=== PATIENT | male | born 1985 | race Caucasian/White ===

== ENCOUNTER 2022-01-15 14:24 | Outpatient (RCR) | payer MEDICAID, SELFPAY ==
[2022-01-31 11:29] LABS: MANUAL DIFF FLAG NO
[2022-01-31 11:38] LABS: Basophils Percent Auto 0.8 % (0-2); Eosinophils Percent Auto 0.2 % (0-4); Hematocrit 37.1 % (42.0-52.0); Hemoglobin 12.7 g/dl (14.0-18.0); Imm Gran Abs Auto 0.02 X10*3/uL (0.00-0.03); Imm Gran Pct Auto 0.4 % (0.0-0.4); Lymphocytes Percent Auto 41.1 % (20-40); Mean Corpuscular HGB Conc 34.2 g/dl (31.0-36.0); Mean Corpuscular Hemoglobin 30.2 pg (27.0-33.0); Mean Corpuscular Volume 88.3 fL (80.0-98.0); Mean Platelet Volume 9.4 fL (9.4-12.4); Monocytes Absolute Auto 0.5 X10*3/uL (0.1-1.2); Monocytes Percent Auto 9.3 % (2-11); Neutrophils Absolute Auto 2.4 x10*3/uL (2.0-8.3); Neutrophils Percent Auto 48.2 % (45-73); Platelet Count 186 X10*3/uL (160-400); Red Cell Distribution Width 13.2 % (11.0-16.0); White Blood Count 4.9 X10*3/uL (4.8-10.8)
[2022-01-31 11:48] LABS: Estimated Average Glucose 128 mg/dL; Hemoglobin A1C 150.2078 umol/L; Hemoglobin A1c % 6.1 %
[2022-01-31 12:22] LABS: Erythrocyte Sedimentation Rate 5 MM/HR (0-15)
[2022-01-31 13:08] LABS: Anion Gap 15 (12-20); Blood Urea Nitrogen 11 mg/dL (9-16); C Reactive Protein 0.35 mg/dL (< or = 0.50); Calcium 9.8 mg/dL (8.4-10.2); Carbon Dioxide 24 mmol/L (22-29); Chloride 104 mmol/L (96-108); Estimated Glomerular Filt Rate > 60; Glucose Random 125 mg/dL (60-115); Potassium 4.1 mmol/L (3.3-5.1); Sodium 139 mmol/L (135-145)
== END 2022-03-08 08:58 | disposition home or self-care (01) ==
LOC: HO.WCC 14:24
PROVIDERS: PCP Pediatrics; Visit Provider Physician Assistant
DX: Z09 Encounter for follow-up examination after completed treatment for conditions other than malignant neoplasm (principal); E11.9 Type 2 diabetes mellitus without complications; F84.0 Autistic disorder; Z86.31 Personal history of diabetic foot ulcer
CPT/HCPCS: 11042; 36415; 80048; 83036; 84134; 85025; 85652; 86140; 99212

== ENCOUNTER 2023-07-09 10:21 | Outpatient (REF) | payer MEDICAID, SELFPAY ==
--- NOTE | ~2023-07-09 | XR_ITS ---
EXAMINATION: XR FOOT, LEFT CLINICAL INFORMATION: Left foot ulcer, swelling COMPARISON: None TECHNIQUE: 3 views of the foot FINDINGS: No fracture or dislocation. Joint spaces are maintained. Os trigonum. No joint effusion. Soft tissue swelling about the second digit. No cortical erosion, focal osteopenia or periosteal reaction to favor osteomyelitis however MRI would be more sensitive for evaluation. XR/XR foot LT min 3V IMPRESSION: 1. Soft tissue swelling about the second digit. No cortical erosion, focal osteopenia or periosteal reaction to favor osteomyelitis however MRI would be more sensitive for evaluation.
== END 2023-07-09 10:22 | disposition home or self-care (01) ==
LOC: HO.XRAY 10:21
PROVIDERS: PCP Pediatrics; Visit Provider Pediatrics
DX: L97.521 Non-pressure chronic ulcer of other part of left foot limited to breakdown of skin (principal)
CPT/HCPCS: 73630

== ENCOUNTER 2023-08-05 08:49 | Outpatient (RCR) | payer MEDICAID, SELFPAY | END 2023-08-13 12:09 | disposition home or self-care (01) | LOC: HO.WCC 08:49 | PROVIDERS: PCP Pediatrics; Visit Provider Physician Assistant | DX: E11.622 Type 2 diabetes mellitus with other skin ulcer (principal); L98.492 Non-pressure chronic ulcer of skin of other sites with fat layer exposed; L84 Corns and callosities; F84.0 Autistic disorder; Z79.84 Long term (current) use of oral hypoglycemic drugs | CPT/HCPCS: 11055; 97597; 99212 ==

== ENCOUNTER 2023-11-17 01:44 | Emergency (ER) | payer MEDICAID, SELFPAY ==
[2023-11-17 02:01] VITALS: PULSE 87; O2SAT 94
[2023-11-17 02:08] VITALS: BMI 41.8
--- NOTE | 2023-11-17 03:17 | PC.NURSE ---
pt disrobing in stretcher. pt also sitting up on his knees holding on the rail of bed stretcher. pt has been redirected by multiple staff members to put gown back on and to sit in bed before falling or getting hurt. pt is unable to get clothes back on unless assistance provided by staff.
[2023-11-17 03:23] VITALS: BP 113/76; PULSE 89; RESP 20; TEMP 36.4; O2SAT 95
--- NOTE | 2023-11-17 05:04 | PC.NURSE ---
pt sitting on stretching moaning and chewing on blanket.
[2023-11-17 05:31] LABS: Basophils Percent Auto 0.9 % (0-2); Eosinophils Percent Auto 0.2 % (0-4); Hematocrit 38.1 % (42.0-52.0); Hemoglobin 13.4 g/dl (14.0-18.0); Imm Gran Abs Auto 0.03 X10*3/uL (0.00-0.03); Imm Gran Pct Auto 0.7 % (0.0-0.4); Lymphocytes Absolute Auto 1.9 X10*3/uL (1.2-4.9); Lymphocytes Percent Auto 40.3 % (20-40); MANUAL DIFF FLAG NO; Mean Corpuscular HGB Conc 35.2 g/dl (31.0-36.0); Mean Corpuscular Hemoglobin 30.2 pg (27.0-33.0); Mean Platelet Volume 8.9 fL (9.4-12.4); Monocytes Absolute Auto 0.7 X10*3/uL (0.1-1.2); Monocytes Percent Auto 14.8 % (2-11); Neutrophils Percent Auto 43.1 % (45-73); Platelet Count 162 X10*3/uL (160-400); Red Blood Count 4.43 X10*6/uL (4.60-5.80); Red Cell Distribution Width 13.1 % (11.0-16.0); White Blood Count 4.6 X10*3/uL (4.8-10.8)
[2023-11-17 05:53] LABS: Alanine Aminotransferase 39 U/L (0-40); Albumin Level 4.5 g/dL (3.5-5.0); Alkaline Phosphatase 89 U/L (39-117); Anion Gap 16 (12-20); Aspartate Amino Transferase 33 U/L (5-37); Bilirubin Total 0.4 mg/dL (0.0-1.0); Blood Urea Nitrogen 10 mg/dL (9-16); Calcium 9.4 mg/dL (8.4-10.2); Carbon Dioxide 16 mmol/L (22-29); Chloride 112 mmol/L (96-108); Creatinine Clr Calc Pharmacy 183.2; Estimated Glomerular Filt Rate > 60; Ethanol < 10 mg/dL; Glucose Random 106 mg/dL (60-115); Potassium 3.9 mmol/L (3.3-5.1); Sodium 140 mmol/L (135-145); Total Protein 7.7 g/dL (6.5-8.0)
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
--- NOTE | 2023-11-17 08:06 | PC.NURSE ---
pt sitting in stretcher, occupationally chewing on blanket. diet order placed for pt to receive breakfast.
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
--- NOTE | 2023-11-17 09:08 | PC.NURSE ---
pt occasionally getting out of bed to stand around stretcher. at one point, pt wandered into ED8's room and took unopened gingerale off cart. pt redirected back to bed and is in stretcher currently resting quietly.
--- NOTE | 2023-11-17 09:28 | PC.NURSE ---
med rec performed by MD Claudy
--- NOTE | 2023-11-17 11:16 | PC.NURSE ---
assumed care of pt at 0700. pt calm, sitting in stretcher quietly in no apparent distress. pt medicated per mar, sister (GEOGRAPHIC INFORMATION SYSTEMS ANALYST) at bedside. pt medicated with home dose of Keppra, per sister. pt was not medicated with Keppra by [facility] staff, so pt was not double dosed. MD Loco aware.
[2023-11-17] MEDS: cloNIDine HCL 0.2 MG TABLET PO (11:21)
[2023-11-17] MEDS: Gabapentin 300 MG CAPSULE PO (11:21)
[2023-11-17] MEDS: risperiDONE 3 MG TABLET PO (11:21)
[2023-11-17] MEDS: Levothyroxine Sodium 75 MCG TABLET PO (11:21)
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
--- NOTE | 2023-11-17 13:05 | MHC.CM.PN ---
This television script writer placed call to Wastewater Project Engineer Maribel Gtuierrez Re: guardianship for patient. Patient has [employer] and [employer], uploaded to [employer]. Call placed to Kae @ [facility] reporting pt's current status and concerns w/ living environment. Pt has another sister Carol that is a portrait consultant for patient via [employer]. Carol has offered to take patient to her home. Per [facility] they have completed an emergency home visit @ Carol's house and have confirmed that patient may discharge there. Co-guardian Jennie is @ pt's bedside in ER and has agreed to this plan.
== END 2023-11-17 13:29 | disposition home or self-care (01) ==
PROVIDERS: Emergency Provider Emergency Medicine
DX: R41.82 Altered mental status, unspecified (principal); F88 Other disorders of psychological development; Z79.899 Other long term (current) drug therapy
CPT/HCPCS: 36415; 80053; 80307; 85025; 99284

== ENCOUNTER 2023-12-17 10:39 | Outpatient (REF) | payer MEDICAID, SELFPAY ==
[2023-12-17 14:55] LABS: Alanine Aminotransferase 48 U/L (0-40); Albumin Level 4.4 g/dL (3.5-5.0); Alkaline Phosphatase 85 U/L (39-117); Aspartate Amino Transferase 33 U/L (5-37); Bilirubin Direct 0.1 mg/dL (0.0-0.5); Bilirubin Total 0.3 mg/dL (0.0-1.0); Total Protein 7.5 g/dL (6.5-8.0)
[2023-12-17 15:12] LABS: TSH reflex Free T4 3.43 uIU/mL (0.32-4.0)
[2023-12-19 00:59] LABS: Prolactin Undiluted 10.5 ng/mL (2.0-18.0)
[2023-12-19 22:49] LABS: TS Negative Control Passed; TS Panel A 0; TS Panel B 0; TS Positive Control Passed; TSpotTB Negative (Negative)
== END 2023-12-17 10:40 | disposition home or self-care (01) ==
LOC: HO.CHCLDS 10:39
PROVIDERS: Visit Provider Pediatrics
DX: Z00.00 Encounter for general adult medical examination without abnormal findings (principal); E11.9 Type 2 diabetes mellitus without complications; F84.0 Autistic disorder; E03.9 Hypothyroidism, unspecified
CPT/HCPCS: 36415; 80076; 84146; 84443; 86481